=== PATIENT | male | born 1990 | race Hispanic/Latino ===

== ENCOUNTER 2020-01-02 22:11 | Emergency (ER) | payer SELFPAY ==
[2020-01-02] MEDS ORDERED: SODIUM CHLORIDE 0.9% 1000ML 2,000 ML IV ONE (22:44)
[2020-01-02 22:51] LABS: BASOPHILS % (AUTO) 0.5 % (0.0-5.0); EOSINOPHILS % (AUTO) 1.6 % (0.0-8.0); HEMATOCRIT 41.2 % (42-54); LYMPHOCYTES % (AUTO) 36.6 % (21.0-51.0); MEAN CORPUSCULAR HEMOGLOBIN 31.1 pg (27.0-33.0); MEAN CORPUSCULAR HGB CONC 34.2 g/dL (32.0-36.0); MEAN CORPUSCULAR VOLUME 90.7 fL (79-99); MONOCYTES % (AUTO) 5.4 % (3.0-13.0); NEUTROPHILS % (AUTO) 55.7 % (40.0-77.0); PLATELET COUNT (AUTO) 215 K/uL (130-400); RED BLOOD CELL COUNT(AUTO) 4.54 MIL/uL (4.50-6.20); RED CELL DISTRIBUTION WIDTH 11.5 % (11.0-15.5); WHITE BLOOD COUNT (AUTO) 8.4 K/uL (4.8-10.8)
[2020-01-02 23:06] LABS: CARBON DIOXIDE 30 mmol/L (21-32); CHLORIDE 106 mmol/L (101-111); CREATININE 1.3 mg/dL (0.5-1.5); GLOMERULAR FILTR. RATE CALC 69 mL/min (>60); GLUCOSE,RANDOM 104 mg/dL (70-105); POTASSIUM 3.9 mmol/L (3.5-5.1); SODIUM SERUM 142 mmol/L (136-145); UREA NITROGEN, BLOOD 15 mg/dL (7-18)
[2020-01-02 23:07] LABS: INR 0.91 (0.85-1.15); PARTIAL THROMBOPLASTIN TIME 24.5 SEC (26.3-35.5); PROTHROMBIN TIME 9.9 SEC (9.6-11.6)
[2020-01-02 23:12] LABS: ALANINE AMINOTRANSFERASE 57 U/L (12-78); ALBUMIN 3.8 g/dL (3.5-5.0); ASPARTATE AMINOTRANSFERASE 31 U/L (10-37); BILIRUBIN,TOTAL 0.7 mg/dL (0.2-1.0); CREATINE KINASE, TOTAL 269 U/L (21-232); TOTAL PROTEIN, SERUM 7.8 g/dL (6.0-8.3)
[2020-01-02 23:13] LABS: ALCOHOL, BLOOD < 3 mg/dL (0-10)
[2020-01-02 23:27] LABS: APPEARANCE,URINE Clear (CLEAR); BILIRUBIN,URINE Negative (NEGATIVE); COLOR,URINE Yellow (YELLOW); GLUCOSE, URINE (UA) Negative (NEGATIVE); KETONES,URINE Negative (NEGATIVE); LEUKOCYTE ESTERASE ,URINE Small (NEGATIVE); NITRATE,URINE Negative (NEGATIVE); OCCULT BLOOD,URINE Negative (NEGATIVE); PROTEIN,URINE Negative (NEGATIVE); UROBILINOGEN,URINE 0.2 mg/dL (0.2-1.0)
[2020-01-02 23:35] LABS: AMPHET/METH SCREEN,URINE NEGATIVE (NEGATIVE); BARBITURATE SCREEN, URINE NEGATIVE (NEGATIVE); BENZODIAZEPINES SCREEN,URINE NEGATIVE (NEGATIVE); CANNABINOID SCREEN,URINE NEGATIVE (NEGATIVE); COCAINE SCREEN,URINE NEGATIVE (NEGATIVE); OPIATE SCREEN,URINE NEGATIVE (NEGATIVE); PHENCYCLIDINE SCREEN,URINE NEGATIVE (NEGATIVE)
[2020-01-02] MEDS ORDERED: ACETAMINOPHEN EXTRA STRENGTH 500 MG TABLET ONE (23:35)
[2020-01-02 23:39] LABS: BACTERIA,URINE Rare /HPF (None Seen); RBC,URINE 0-1 /HPF (0-1)
[2020-01-03] MEDS ORDERED: METOCLOPRAMIDE 10 MG/2 ML VIAL ONE (00:01)
[2020-01-03] MEDS ORDERED: ORPHENADRINE CITRATE 30 MG/ML ML ONE (00:02)
== END 2020-01-03 00:36 | disposition home or self-care (01) ==
LOC: EDH 22:11
DX: S00.81XA Abrasion of other part of head, initial encounter (principal); S80.819A Abrasion, unspecified lower leg, initial encounter; S30.810A Abrasion of lower back and pelvis, initial encounter; S16.1XXA Strain of muscle, fascia and tendon at neck level, initial encounter; F07.81 Postconcussional syndrome; V98.8XXA Other specified transport accidents, initial encounter; Y92.69 Other specified industrial and construction area as the place of occurrence of the external cause; Y99.0 Civilian activity done for income or pay; Y93.89 Activity, other specified
CPT/HCPCS: 36415; 70450; 71045; 72125; 80053; 80305; 81001; 82550; 83605; 85025; 85610; 85730; 87088; 93005; 96361; 96374; 96375; 99285; G0480; J2360; J2765; J7030

== ENCOUNTER 2023-01-03 00:21 | Inpatient (IN) | payer OTHER ==
[~2023-01-03] VITALS: Ht 177.8 cm; Wt 102.2 kg
[2023-01-03 01:34] LABS: BASOPHILS % (AUTO) 0.4 % (0.0-5.0); EOSINOPHILS % (AUTO) 0.1 % (0.0-8.0); HEMATOCRIT 43.4 % (42-54); LYMPHOCYTES % (AUTO) 16.5 % (21.0-51.0); MEAN CORPUSCULAR HEMOGLOBIN 31.5 pg (27.0-33.0); MEAN CORPUSCULAR HGB CONC 34.8 g/dL (32.0-36.0); MEAN CORPUSCULAR VOLUME 90.4 fL (79-99); MONOCYTES % (AUTO) 8.2 % (3.0-13.0); NEUTROPHILS % (AUTO) 72.5 % (40.0-77.0); PLATELET COUNT (AUTO) 288 K/uL (130-400); RED CELL DISTRIBUTION WIDTH 11.5 % (11.0-15.5); WHITE BLOOD COUNT (AUTO) 18.5 K/uL (4.8-10.8)
[2023-01-03] MEDS ORDERED: IOHEXOL 350 MG/ML 100ML INFUS..BTL IV ONE (01:40)
[2023-01-03 01:48] LABS: CREATININE 1.1 mg/dL (0.5-1.5); POTASSIUM 3.3 mmol/L (3.5-5.1)
[2023-01-03 01:52] LABS: TOTAL PROTEIN, SERUM 6.3 g/dL (6.0-8.3)
[2023-01-03] MEDS ORDERED: MORPHINE 4 MG SYG IVP ONE (02:30)
[2023-01-03] MEDS ORDERED: ONDANSETRON 4MG INJ IVP ONE (02:30)
[2023-01-03] MEDS ORDERED: ZOSYN 3.375GM +NS 50ML IVPB ONE (03:00)
[2023-01-03] MEDS ORDERED: ONDANSETRON 4MG INJ IV PRN (03:30)
[2023-01-03] MEDS ORDERED: MAGNESIUM 2GM PREMIX 50ML 50 ML IV PRN (03:30)
[2023-01-03] MEDS ORDERED: LIDOCAINE HCL-MPF 1% 2ML VIAL IV PRN ×2 (03:30→08:30)
[2023-01-03] MEDS ORDERED: POTASSIUM CHLORIDE 20MEQ/100ML 100 ML IV PRN ×2 (03:30→08:30)
[2023-01-03] MEDS ORDERED: MORPHINE 2 MG SYG IV PRN (03:30)
[2023-01-03] MEDS ORDERED: 0.9%NACL 1000ML 1,000 ML IV ONE (03:30)
[2023-01-03] MEDS ORDERED: ACETAMINOPHEN 325 MG TAB PO PRN ×2 (03:30)
[2023-01-03] MEDS: HYDROMORPHONE 1 MG INJ IV PRN ×4 (05:00→20:28)
[2023-01-03] MEDS: LACTATED RINGERS 1000ML 1,000 ML IV SCH (05:06)
[2023-01-03 06:59] LABS: BASOPHILS % (AUTO) 0.3 % (0.0-5.0); EOSINOPHILS % (AUTO) 0.2 % (0.0-8.0); HEMATOCRIT 41.1 % (42-54); MEAN CORPUSCULAR HEMOGLOBIN 31.9 pg (27.0-33.0); MEAN CORPUSCULAR HGB CONC 34.8 g/dL (32.0-36.0); MEAN CORPUSCULAR VOLUME 91.7 fL (79-99); MONOCYTES % (AUTO) 7.3 % (3.0-13.0); NEUTROPHILS % (AUTO) 75.1 % (40.0-77.0); NUCLEATED RED BLOOD CELLS 0.1 % (0.0-0.19); PLATELET COUNT (AUTO) 274 K/uL (130-400); RED BLOOD CELL COUNT(AUTO) 4.48 MIL/uL (4.50-6.20); RED CELL DISTRIBUTION WIDTH 11.7 % (11.0-15.5); WHITE BLOOD COUNT (AUTO) 19.9 K/uL (4.8-10.8)
[2023-01-03 07:10] LABS: INR 0.95 (0.85-1.15); PROTHROMBIN TIME 10.4 SEC (9.6-11.6)
[2023-01-03 07:11] LABS: PARTIAL THROMBOPLASTIN TIME 23.9 SEC (26.3-35.5)
[2023-01-03 07:13] LABS: CREATININE 1.1 mg/dL (0.5-1.5); MAGNESIUM 1.7 mg/dL (1.80-2.40); PHOSPHORUS 3.4 mg/dL (2.5-4.9); POTASSIUM 3.9 mmol/L (3.5-5.1)
[2023-01-03 08:00] VITALS: BP_SYST 117; BP_SYST 132; BP_DIAS 75; BP_DIAS 77
[2023-01-03] MEDS ORDERED: KCL 20 MEQ ERTAB PO PRN (08:30)
[2023-01-03] MEDS ORDERED: POTASSIUM CHLORIDE 10% ELIXIR 20 MEQ/15 ML UDCUP PO PRN (08:30)
[2023-01-03] MEDS: ENOXAPARIN SODIUM 40 MG/0.4 ML SYRINGE SQ SCH (09:00)
[2023-01-03] MEDS: FAMOTIDINE 20MG VIAL IV SCH ×2 (09:03→20:07)
[2023-01-03 12:00] VITALS: BP 121/58
[2023-01-03] MEDS ORDERED: KETOROLAC 30MG VIAL (30MG/ML) IVP SCH (15:37)
[2023-01-03] MEDS ORDERED: KETOROLAC 30MG VIAL (30MG/ML) ONE (15:44)
[2023-01-03 16:00] VITALS: BP 110/60
[2023-01-03 20:00] VITALS: BP 159/82
[2023-01-03] MEDS ORDERED: 0.9%NACL 50ML IV SCH (21:00)
[2023-01-03] MEDS: ZOSYN 3.375GM +NS 50ML IVPB SCH (22:06)
[2023-01-03 23:47] VITALS: BP 106/59
[2023-01-04] VITALS (27 sets, daily range): BP systolic 86–121; BP diastolic 49–86
[2023-01-04] MEDS: HYDROMORPHONE 1 MG INJ IV PRN ×2 (01:05→05:09)
[2023-01-04] MEDS: LACTATED RINGERS 1000ML 1,000 ML IV SCH ×3 (02:40→20:37)
[2023-01-04] MEDS: ZOSYN 3.375GM +NS 50ML IVPB SCH ×3 (05:00→21:20)
[2023-01-04 05:39] LABS: BASOPHILS % (AUTO) 0.2 % (0.0-5.0); EOSINOPHILS % (AUTO) 0.3 % (0.0-8.0); HEMATOCRIT 41.8 % (42-54); LYMPHOCYTES % (AUTO) 10.6 % (21.0-51.0); MEAN CORPUSCULAR HEMOGLOBIN 31.2 pg (27.0-33.0); MEAN CORPUSCULAR HGB CONC 34.4 g/dL (32.0-36.0); MEAN CORPUSCULAR VOLUME 90.7 fL (79-99); MONOCYTES % (AUTO) 6.7 % (3.0-13.0); NEUTROPHILS % (AUTO) 80.5 % (40.0-77.0); PLATELET COUNT (AUTO) 270 K/uL (130-400); RED BLOOD CELL COUNT(AUTO) 4.61 MIL/uL (4.50-6.20); RED CELL DISTRIBUTION WIDTH 11.8 % (11.0-15.5); WHITE BLOOD COUNT (AUTO) 20.1 K/uL (4.8-10.8)
[2023-01-04] MEDS: FAMOTIDINE 20MG VIAL IV SCH ×2 (07:58→21:20)
[2023-01-04] MEDS: ENOXAPARIN SODIUM 40 MG/0.4 ML SYRINGE SQ SCH (09:00)
[2023-01-04] MEDS ORDERED: FENTANYL CITRATE PF 50 MCG/1 ML 2ML VIAL ONE ×2 (10:04→10:15)
[2023-01-04] MEDS ORDERED: LIDOCAINE PF 100MG/5ML (2%) SYRINGE 5ML ONE (10:04)
[2023-01-04] MEDS ORDERED: PROPOFOL 10 MG/ML 20ML VIAL IV ONE (10:04)
[2023-01-04] MEDS ORDERED: MIDAZOLAM HCL 1 MG/ML 2ML VIAL ONE (10:04)
[2023-01-04] MEDS ORDERED: CEFAZOLIN SODIUM 1 GM VIAL ONE (10:31)
[2023-01-04] MEDS ORDERED: LIDOCAINE HCL MPF 1% 5ML VIAL ONE (10:36)
[2023-01-04] MEDS ORDERED: ONDANSETRON 4MG INJ ONE (10:50)
[2023-01-04] MEDS ORDERED: OXYCODONE/ACETAMIN 5/325MG TAB PO PRN (12:30)
[2023-01-04] MEDS: KETOROLAC 30MG VIAL (30MG/ML) IVP PRN ×2 (12:30→18:11)
[2023-01-04] MEDS ORDERED: HYDROMORPHONE 1 MG INJ IV PRN (12:30)
[2023-01-04] MEDS ORDERED: KETOROLAC 30MG VIAL (30MG/ML) IM SCH (18:00)
[2023-01-04] MEDS: DOCUSATE SODIUM 100 MG CAP PO SCH (21:19)
[2023-01-05] VITALS (7 sets, daily range): BP systolic 99–113; BP diastolic 59–78
[2023-01-05] MEDS: KETOROLAC 30MG VIAL (30MG/ML) IV SCH ×5 (01:42→23:48)
[2023-01-05] MEDS: ZOSYN 3.375GM +NS 50ML IVPB SCH ×3 (05:31→21:02)
[2023-01-05 05:55] LABS: BASOPHILS % (AUTO) 0.5 % (0.0-5.0); EOSINOPHILS % (AUTO) 2.3 % (0.0-8.0); HEMATOCRIT 38.4 % (42-54); LYMPHOCYTES % (AUTO) 18.3 % (21.0-51.0); MEAN CORPUSCULAR HEMOGLOBIN 31.2 pg (27.0-33.0); MEAN CORPUSCULAR HGB CONC 33.6 g/dL (32.0-36.0); MEAN CORPUSCULAR VOLUME 92.8 fL (79-99); MONOCYTES % (AUTO) 6.4 % (3.0-13.0); NEUTROPHILS % (AUTO) 68.9 % (40.0-77.0); PLATELET COUNT (AUTO) 236 K/uL (130-400); RED BLOOD CELL COUNT(AUTO) 4.14 MIL/uL (4.50-6.20); RED CELL DISTRIBUTION WIDTH 11.9 % (11.0-15.5); WHITE BLOOD COUNT (AUTO) 12.7 K/uL (4.8-10.8)
[2023-01-05 06:12] LABS: ALBUMIN 2.3 g/dL (3.5-5.0); CREATININE 1.2 mg/dL (0.5-1.5); TOTAL PROTEIN, SERUM 5.9 g/dL (6.0-8.3)
[2023-01-05] MEDS: LACTATED RINGERS 1000ML 1,000 ML IV SCH ×2 (06:33→18:00)
[2023-01-05] MEDS: ENOXAPARIN SODIUM 40 MG/0.4 ML SYRINGE SQ SCH (09:38)
[2023-01-05] MEDS: DOCUSATE SODIUM 100 MG CAP PO SCH ×3 (09:38→21:02)
[2023-01-05] MEDS: FAMOTIDINE 20MG VIAL IV SCH ×2 (09:38→21:02)
[2023-01-05] MEDS ORDERED: LACTULOSE 20 GM/30 ML UDCUP PO PRN (11:00)
[2023-01-06 04:20] VITALS: BP 115/77
[2023-01-06] MEDS: ZOSYN 3.375GM +NS 50ML IVPB SCH ×3 (06:01→20:20)
[2023-01-06] MEDS: KETOROLAC 30MG VIAL (30MG/ML) IV SCH ×4 (06:02→23:15)
[2023-01-06] MEDS: LACTATED RINGERS 1000ML 1,000 ML IV SCH ×2 (06:05→20:28)
[2023-01-06 06:31] LABS: BASOPHILS % (AUTO) 0.7 % (0.0-5.0); EOSINOPHILS % (AUTO) 3.4 % (0.0-8.0); HEMATOCRIT 39.3 % (42-54); LYMPHOCYTES % (AUTO) 30.8 % (21.0-51.0); MEAN CORPUSCULAR HEMOGLOBIN 31.2 pg (27.0-33.0); MEAN CORPUSCULAR HGB CONC 33.3 g/dL (32.0-36.0); MEAN CORPUSCULAR VOLUME 93.6 fL (79-99); MONOCYTES % (AUTO) 9.5 % (3.0-13.0); NEUTROPHILS % (AUTO) 49.1 % (40.0-77.0); PLATELET COUNT (AUTO) 246 K/uL (130-400); RED CELL DISTRIBUTION WIDTH 11.9 % (11.0-15.5); WHITE BLOOD COUNT (AUTO) 8.4 K/uL (4.8-10.8)
[2023-01-06 06:45] LABS: ALBUMIN 2.4 g/dL (3.5-5.0); CREATININE 1.1 mg/dL (0.5-1.5); POTASSIUM 4.6 mmol/L (3.5-5.1); TOTAL PROTEIN, SERUM 6.1 g/dL (6.0-8.3)
[2023-01-06 08:00] VITALS: BP 113/71
[2023-01-06] MEDS: FAMOTIDINE 20MG VIAL IV SCH ×2 (09:28→20:18)
[2023-01-06] MEDS: DOCUSATE SODIUM 100 MG CAP PO SCH ×3 (09:28→20:18)
[2023-01-06] MEDS: ENOXAPARIN SODIUM 40 MG/0.4 ML SYRINGE SQ SCH (09:29)
[2023-01-06 11:00] VITALS: BP 113/71
[2023-01-06] MEDS: OXYCODONE/ACETAMIN 5/325MG TAB PO PRN ×2 (15:36→22:13)
[2023-01-06 16:00] VITALS: BP 108/59
[2023-01-06 20:43] VITALS: BP 103/62
[2023-01-06 23:28] VITALS: BP 107/59
[2023-01-07] MEDS: LACTATED RINGERS 1000ML 1,000 ML IV SCH ×2 (01:11→23:35)
[2023-01-07 03:58] VITALS: BP 127/84
[2023-01-07] MEDS: ZOSYN 3.375GM +NS 50ML IVPB SCH ×3 (04:16→20:21)
[2023-01-07] MEDS: KETOROLAC 30MG VIAL (30MG/ML) IV SCH ×4 (04:26→23:30)
[2023-01-07 06:08] LABS: BASOPHILS % (AUTO) 0.8 % (0.0-5.0); EOSINOPHILS % (AUTO) 3.5 % (0.0-8.0); HEMATOCRIT 42.6 % (42-54); LYMPHOCYTES % (AUTO) 41.7 % (21.0-51.0); MEAN CORPUSCULAR HEMOGLOBIN 31.1 pg (27.0-33.0); MEAN CORPUSCULAR HGB CONC 33.3 g/dL (32.0-36.0); MEAN CORPUSCULAR VOLUME 93.4 fL (79-99); MONOCYTES % (AUTO) 6.3 % (3.0-13.0); NEUTROPHILS % (AUTO) 42.4 % (40.0-77.0); PLATELET COUNT (AUTO) 258 K/uL (130-400); RED BLOOD CELL COUNT(AUTO) 4.56 MIL/uL (4.50-6.20); RED CELL DISTRIBUTION WIDTH 11.9 % (11.0-15.5); WHITE BLOOD COUNT (AUTO) 7.3 K/uL (4.8-10.8)
[2023-01-07 06:39] LABS: ALBUMIN 2.5 g/dL (3.5-5.0); CREATININE 1.1 mg/dL (0.5-1.5); POTASSIUM 4.4 mmol/L (3.5-5.1); TOTAL PROTEIN, SERUM 6.3 g/dL (6.0-8.3)
[2023-01-07 08:00] VITALS: BP 128/69
[2023-01-07] MEDS: ENOXAPARIN SODIUM 40 MG/0.4 ML SYRINGE SQ SCH (08:23)
[2023-01-07] MEDS: FAMOTIDINE 20MG VIAL IV SCH ×2 (08:23→20:21)
[2023-01-07] MEDS: DOCUSATE SODIUM 100 MG CAP PO SCH ×3 (09:14→20:21)
[2023-01-07 12:00] VITALS: BP 117/71
[2023-01-07 16:00] VITALS: BP 112/73
[2023-01-07 20:00] VITALS: BP 124/70
[2023-01-08] VITALS: BP 130/83
[2023-01-08 04:00] VITALS: BP 113/73
[2023-01-08] MEDS: ZOSYN 3.375GM +NS 50ML IVPB SCH ×2 (04:46→12:46)
[2023-01-08] MEDS: KETOROLAC 30MG VIAL (30MG/ML) IV SCH ×2 (06:28→11:44)
[2023-01-08 08:00] VITALS: BP 125/83
[2023-01-08] MEDS: LACTATED RINGERS 1000ML 1,000 ML IV SCH (08:57)
[2023-01-08] MEDS: DOCUSATE SODIUM 100 MG CAP PO SCH ×2 (08:57→14:00)
[2023-01-08] MEDS: FAMOTIDINE 20MG VIAL IV SCH (08:58)
[2023-01-08] MEDS: ENOXAPARIN SODIUM 40 MG/0.4 ML SYRINGE SQ SCH (09:01)
[2023-01-08 12:00] VITALS: BP 104/63
== END 2023-01-08 15:30 | disposition home or self-care (01) | DRG 853 ==
LOC: EDH 00:21 → EDHIP 00:22 → 3BH 04:45
PROVIDERS: ADMIT Hospitalist; ATTEND Hospitalist
PROC: 0D9P0ZZ Drainage of Rectum, Open Approach (ICD-10-PCS; principal; 2023-01-04 10:00)
DX: A41.9 Sepsis, unspecified organism (principal); N15.1 Renal and perinephric abscess; E44.0 Moderate protein-calorie malnutrition; K61.2 Anorectal abscess; K59.00 Constipation, unspecified; Z20.822 Contact with and (suspected) exposure to COVID-19; D72.829 Elevated white blood cell count, unspecified; E87.6 Hypokalemia; Z68.33 Body mass index [BMI] 33.0-33.9, adult; E66.09 Other obesity due to excess calories
CPT/HCPCS: 36415; 74177; 80048; 80053; 83605; 83690; 83735; 84100; 84145; 85025; 85610; 85651; 85730; 86140; 86850; 86900; 86901; 87040; 87070; 87076; 87077; 87186; 87205; 87635; 93005; G0378; J0690; J1170; J1650; J1885; J2001; J2250; J2270; J2405; J2543; J2704; J3010; J3475; J3490; Q9967